=== PATIENT | female | born 1970 | race Hispanic/Latino ===

== ENCOUNTER 2021-12-07 16:53 | Outpatient (CLI) | payer OTHER | END 2021-12-07 16:54 | disposition home or self-care (01) | LOC: LABBT 16:53 | PROVIDERS: ATTEND Internal Medicine | DX: Z12.11 Encounter for screening for malignant neoplasm of colon (principal); Z20.822 Contact with and (suspected) exposure to COVID-19 | CPT/HCPCS: 87811 ==

== ENCOUNTER 2021-12-10 14:32 | Outpatient (CLI) | payer OTHER | END 2021-12-10 14:33 | disposition home or self-care (01) | LOC: BICMAMMO 14:32 | PROVIDERS: ATTEND Family Medicine | DX: Z12.31 Encounter for screening mammogram for malignant neoplasm of breast (principal) | CPT/HCPCS: 77063; 77067 ==

== ENCOUNTER 2021-12-12 07:07 | Day surgery (SDC) | payer OTHER ==
[2021-12-11 11:25] VITALS: BMI 45.3
[2021-12-12] MEDS ORDERED: Lidocaine 1% PF 5 ML VIAL ONE (09:11)
[2021-12-12] MEDS ORDERED: PROPOFOL 200 MG/20 ML VIAL ONE (09:11)
== END 2021-12-12 10:08 | disposition home or self-care (01) ==
LOC: SDC 07:07
PROVIDERS: ATTEND Internal Medicine
PROC: 0DBM8ZX Excision of Descending Colon, Via Natural or Artificial Opening Endoscopic, Diagnostic (ICD-10-PCS; principal; 2021-12-12)
PROC: 0DBH8ZX Excision of Cecum, Via Natural or Artificial Opening Endoscopic, Diagnostic (ICD-10-PCS; principal; 2021-12-12)
PROC: 0DBK8ZX Excision of Ascending Colon, Via Natural or Artificial Opening Endoscopic, Diagnostic (ICD-10-PCS; principal; 2021-12-12)
DX: Z12.11 Encounter for screening for malignant neoplasm of colon (principal); D12.0 Benign neoplasm of cecum; D12.2 Benign neoplasm of ascending colon; D12.4 Benign neoplasm of descending colon; K57.30 Diverticulosis of large intestine without perforation or abscess without bleeding; E03.9 Hypothyroidism, unspecified; I10 Essential (primary) hypertension; M32.9 Systemic lupus erythematosus, unspecified; Z79.890 Hormone replacement therapy; Z79.899 Other long term (current) drug therapy
CPT/HCPCS: 88305; J2704

== ENCOUNTER 2022-03-05 08:13 | Inpatient (IN) | payer OTHER ==
[2022-03-05] MEDS ORDERED: Fentanyl 100 MCG/2 ML VIAL ONE (08:39)
[2022-03-05 09:48] LABS: ALT (SGPT) 191 U/L (8-55); AST (SGOT) 285 U/L (5-34); Albumin 3.4 g/dL (3.5-5.0); Alkaline Phosphatase 74 U/L (40-110); Anion Gap 16 mmol/L (10-20); BUN (Urea Nitrogen) 22 mg/dL (7.0-18.7); Bilirubin, Total 0.3 mg/dL (0.2-1.2); Calc. Creatinine Clearance 0 mL/min (70-130); Carbon Dioxide 19 mmol/L (22-29); Chloride 103 mmol/L (98-107); Estimated GFR 64; Globulin 3.3 g/dL (2.4-3.5); Glucose 153 mg/dL (70-105); Protein, Total 6.7 g/dL (6.0-8.3); Sodium 133 mmol/L (136-145)
[2022-03-05 09:57] LABS: #Eosinphils 0.1 thou/uL (0.0-0.7); #Lymphocytes 0.7 thou/uL (1.20-3.40); #Monocytes 0.5 thou/uL (0.11-0.59); #Neutrophils 9.8 thou/uL (1.40-6.50); %Basophils 0.3 % (0.0-1.0); %Eosinophils 1.1 % (0.0-10.0); %Lymphocytes 6.2 % (21.0-51.0); %Monocytes 4.1 % (0.0-10.0); %Neutrophils 88.4 % (42.0-75.0); Hemoglobin 12.8 g/dL (12.0-16.0); Mean Corpuscular HGB CONC 33.9 g/dL (32.0-36.0); Mean Corpuscular Hemoglobin 29.6 pg (27.0-31.0); Mean Corpuscular Volume 87.3 fL (78.0-98.0); Mean Platelet Volume 7.3 fL (7.4-10.4); Platelet Count 237 thou/uL (130-400); RBC Distribution Width 12.5 % (11.5-14.5); Red Blood Cell (RBC) Count 4.35 mill/uL (4.20-5.40); White Blood Cell (WBC) Count 11.1 thou/uL (4.8-10.8)
[2022-03-05 10:03] LABS: Prothrombin Time 13.4 sec (12.0-14.7)
[2022-03-05 10:04] LABS: PTT 27.2 sec (22.9-36.1)
[2022-03-05] MEDS ORDERED: Dextrose 50% Abboject 50 ML SYRINGE SLOW IVP PRN (10:52)
[2022-03-05] MEDS ORDERED: Morphine 2 MG/ML VIAL SLOW IVP PRN (10:52)
[2022-03-05] MEDS ORDERED: HumaLOG 300 UNITS/3 ML VIAL SC PRN (10:52)
[2022-03-05] MEDS ORDERED: TETANUS, DIPHTHERIA TOX,ADULT (TDVAX) 0.5 ML VIAL IM ONE (10:52)
[2022-03-05] MEDS ORDERED: Dextrose 5% in Water 1,000 ML IV PRN (10:52)
[2022-03-05] MEDS ORDERED: Morphine 4 MG/ML VIAL ONE (11:54)
[2022-03-05 12:58] LABS: Lactic Acid 3.2 mmol/L (0.5-2.2)
[2022-03-05] MEDS: traMADol HCl 50 MG TAB PO PRN (13:21)
[2022-03-05] MEDS: Sodium Chloride 0.9% 1,000 ML IV SCH ×3 (13:22→23:10)
[2022-03-05] MEDS: Ondansetron PF 4 MG/2 ML Vial IVP PRN (13:26)
[2022-03-05] MEDS ORDERED: Iopamidol 370 76% 50 ML VIAL FS ONE (13:36)
[2022-03-05 14:37] VITALS: BMI 45.3
[2022-03-05] MEDS: Cyclobenzaprine 10 MG TAB PO PRN (15:56)
[2022-03-05] MEDS ORDERED: FLU VACC QS2022-23(6MOS UP)/PF 60 MCG/0.5 ML SYRINGE IM ONE (16:00)
[2022-03-05 16:09] LABS: Bacteria/HPF 4+ HPF (None Seen); Bilirubin Negative (Negative); Blood, Urine 3+ (Negative); Clarity Turbid (Clear); Glucose, Urine (Dipstick) Normal (Negative); Ketone, Urine Negative (Negative); Leukocyte 500 Leu/uL (Negative); Nitrite 1+ (Negative); Protein, Urine (Dipstick) 50 mg/dL (Neg-Trace); RBC/HPF Greater than 50 HPF (0-3); Specific Gravity, Urine 1.041 (1.002-1.036); Squamous Epithelial None Seen HPF (0-3); Urobilinogen Normal mg/dL (Less than 2); WBC/HPF Greater than 50 HPF (0-3)
[2022-03-05 16:10] LABS: Urine Culture Reflex Yes Yes
[2022-03-05] MEDS ORDERED: Boostrix 0.5 ML (Tdap) VIAL (>/=7 yrs of age) IM ONE (16:30)
[2022-03-05] MEDS: cefTRIAXone\\ROCEPHIN 2 GM in Sodium Chloride 0.9% 100 ML IVPB SCH (17:22)
[2022-03-05] MEDS: Acetaminophen 325 MG TAB PO SCH ×2 (17:23→23:18)
[2022-03-05] MEDS: traMADol HCl 50 MG TAB PO SCH ×2 (17:26→23:21)
[2022-03-05] MEDS: Hydroxychloroquine Sulfate 200 MG TAB PO SCH (21:20)
[2022-03-05] MEDS: Senokot S 8.6-50 MG TAB PO SCH (21:20)
[2022-03-06] MEDS: Sodium Chloride 0.9% 1,000 ML IV SCH ×2 (04:53→16:42)
[2022-03-06] MEDS: Acetaminophen 325 MG TAB PO SCH ×3 (05:22→17:47)
[2022-03-06] MEDS: Levothyroxine Sodium 75 MCG TAB PO SCH (05:23)
[2022-03-06] MEDS: traMADol HCl 50 MG TAB PO SCH ×3 (05:23→17:48)
[2022-03-06 05:53] LABS: #Eosinphils 0.1 thou/uL (0.0-0.7); #Lymphocytes 0.7 thou/uL (1.20-3.40); #Monocytes 0.6 thou/uL (0.11-0.59); #Neutrophils 4.4 thou/uL (1.40-6.50); %Basophils 0.3 % (0.0-1.0); %Eosinophils 1.2 % (0.0-10.0); %Lymphocytes 12.1 % (21.0-51.0); %Monocytes 10.3 % (0.0-10.0); %Neutrophils 76.1 % (42.0-75.0); Hemoglobin 11.7 g/dL (12.0-16.0); Mean Corpuscular HGB CONC 33.5 g/dL (32.0-36.0); Mean Corpuscular Hemoglobin 29.7 pg (27.0-31.0); Mean Corpuscular Volume 88.7 fL (78.0-98.0); Mean Platelet Volume 7.1 fL (7.4-10.4); Platelet Count 196 thou/uL (130-400); RBC Distribution Width 12.8 % (11.5-14.5); Red Blood Cell (RBC) Count 3.94 mill/uL (4.20-5.40); White Blood Cell (WBC) Count 5.8 thou/uL (4.8-10.8)
[2022-03-06 06:05] LABS: Anion Gap 12 mmol/L (10-20); BUN (Urea Nitrogen) 20 mg/dL (7.0-18.7); Calc. Creatinine Clearance 152 mL/min (70-130); Calcium 8.7 mg/dL (7.8-10.44); Carbon Dioxide 21 mmol/L (22-29); Chloride 107 mmol/L (98-107); Estimated GFR 88; Glucose 104 mg/dL (70-105); Potassium 4.5 mmol/L (3.5-5.1); Sodium 135 mmol/L (136-145)
[2022-03-06 06:30] LABS: INR-International Normal Ratio 1.1; Prothrombin Time 14.1 sec (12.0-14.7)
[2022-03-06 06:31] LABS: PTT 30.2 sec (22.9-36.1)
[2022-03-06] MEDS: Pregabalin 50 MG CAP PO SCH (08:45)
[2022-03-06] MEDS: Senokot S 8.6-50 MG TAB PO SCH ×2 (08:46→20:38)
[2022-03-06] MEDS: Folic Acid 1 MG TAB PO SCH (08:46)
[2022-03-06] MEDS: Magnesium Oxide 400 MG TAB PO SCH (08:46)
[2022-03-06] MEDS: Hydroxychloroquine Sulfate 200 MG TAB PO SCH ×2 (08:46→20:38)
[2022-03-06] MEDS ORDERED: Methotrexate Sodium 2.5 MG TAB PO SCH (09:00)
[2022-03-06] MEDS: traMADol HCl 50 MG TAB PO PRN ×2 (12:12→17:48)
[2022-03-06] MEDS: Enoxaparin Sodium 30 MG/0.3 ML SYRINGE SC SCH ×2 (12:14→20:38)
[2022-03-06] MEDS: Polyethylene Glycol 3350 17 GM Packet PO SCH (12:16)
[2022-03-06] MEDS: cefTRIAXone\\ROCEPHIN 2 GM in Sodium Chloride 0.9% 100 ML IVPB SCH (17:48)
[2022-03-07] MEDS: traMADol HCl 50 MG TAB PO SCH ×4 (00:17→18:13)
[2022-03-07] MEDS: Acetaminophen 325 MG TAB PO SCH (00:17)
[2022-03-07] MEDS: Ondansetron PF 4 MG/2 ML Vial IVP PRN ×2 (05:14→18:15)
[2022-03-07] MEDS: Levothyroxine Sodium 75 MCG TAB PO SCH (05:14)
[2022-03-07] MEDS: Acetaminophen 500 MG TAB PO SCH ×3 (05:14→18:13)
[2022-03-07] MEDS: Sodium Chloride 0.9% 1,000 ML IV SCH (06:49)
[2022-03-07 06:54] LABS: Anion Gap 14 mmol/L (10-20); BUN (Urea Nitrogen) 26 mg/dL (7.0-18.7); Calc. Creatinine Clearance 137 mL/min (70-130); Calcium 9.4 mg/dL (7.8-10.44); Carbon Dioxide 20 mmol/L (22-29); Chloride 106 mmol/L (98-107); Estimated GFR 78; Glucose 130 mg/dL (70-105); Phosphorus 3.6 mg/dL (2.3-4.7); Potassium 4.8 mmol/L (3.5-5.1); Sodium 135 mmol/L (136-145)
[2022-03-07 07:29] LABS: #Eosinphils 0.2 thou/uL (0.0-0.7); #Lymphocytes 0.7 thou/uL (1.20-3.40); #Monocytes 0.6 thou/uL (0.11-0.59); #Neutrophils 5.5 thou/uL (1.40-6.50); %Basophils 0.3 % (0.0-1.0); %Eosinophils 3.3 % (0.0-10.0); %Lymphocytes 9.7 % (21.0-51.0); %Monocytes 8.6 % (0.0-10.0); %Neutrophils 78.2 % (42.0-75.0); Hemoglobin 12.7 g/dL (12.0-16.0); Mean Corpuscular HGB CONC 33.4 g/dL (32.0-36.0); Mean Corpuscular Volume 89.9 fL (78.0-98.0); Mean Platelet Volume 7.2 fL (7.4-10.4); Platelet Count 187 thou/uL (130-400); RBC Distribution Width 12.6 % (11.5-14.5); Red Blood Cell (RBC) Count 4.24 mill/uL (4.20-5.40)
[2022-03-07 07:39] LABS: SARS-CoV-2 NAA Rapid Test Not Detected (NotDetected)
[2022-03-07] MEDS: Magnesium Oxide 400 MG TAB PO SCH (09:52)
[2022-03-07] MEDS: Senokot S 8.6-50 MG TAB PO SCH ×2 (09:52→21:13)
[2022-03-07] MEDS: Cholecalciferol 1,000 UNITS (25 MCG) TAB PO SCH (09:52)
[2022-03-07] MEDS: Pregabalin 50 MG CAP PO SCH (09:52)
[2022-03-07] MEDS: Hydroxychloroquine Sulfate 200 MG TAB PO SCH ×2 (09:52→21:13)
[2022-03-07] MEDS: Folic Acid 1 MG TAB PO SCH (09:52)
[2022-03-07] MEDS: Lisinopril 20 MG TAB PO SCH (09:53)
[2022-03-07] MEDS: Polyethylene Glycol 3350 17 GM Packet PO SCH (09:58)
[2022-03-07] MEDS: Enoxaparin Sodium 30 MG/0.3 ML SYRINGE SC SCH ×2 (09:58→21:13)
[2022-03-07] MEDS: traMADol HCl 50 MG TAB PO PRN ×2 (11:49→18:13)
[2022-03-07] MEDS: cefTRIAXone\\ROCEPHIN 2 GM in Sodium Chloride 0.9% 100 ML IVPB SCH (18:14)
[2022-03-08] MEDS: traMADol HCl 50 MG TAB PO SCH ×5 (00:17→23:49)
[2022-03-08] MEDS: Acetaminophen 500 MG TAB PO SCH ×5 (00:17→23:49)
[2022-03-08] MEDS: Levothyroxine Sodium 75 MCG TAB PO SCH (05:20)
[2022-03-08] MEDS: Enoxaparin Sodium 30 MG/0.3 ML SYRINGE SC SCH ×2 (08:13→20:26)
[2022-03-08] MEDS: Cholecalciferol 1,000 UNITS (25 MCG) TAB PO SCH (08:13)
[2022-03-08] MEDS: Polyethylene Glycol 3350 17 GM Packet PO SCH (08:13)
[2022-03-08] MEDS: Hydroxychloroquine Sulfate 200 MG TAB PO SCH ×2 (08:13→20:26)
[2022-03-08] MEDS: Pregabalin 50 MG CAP PO SCH (08:14)
[2022-03-08] MEDS: Folic Acid 1 MG TAB PO SCH (08:14)
[2022-03-08] MEDS: Magnesium Oxide 400 MG TAB PO SCH (08:14)
[2022-03-08] MEDS: Senokot S 8.6-50 MG TAB PO SCH ×2 (08:14→20:25)
[2022-03-08] MEDS: Lisinopril 20 MG TAB PO SCH (08:14)
[2022-03-08] MEDS: Ondansetron PF 4 MG/2 ML Vial IVP PRN (11:46)
[2022-03-08] MEDS: Cyclobenzaprine 10 MG TAB PO PRN (20:26)
[2022-03-09] MEDS: traMADol HCl 50 MG TAB PO SCH ×4 (05:30→23:49)
[2022-03-09] MEDS: Levothyroxine Sodium 75 MCG TAB PO SCH (05:30)
[2022-03-09] MEDS: Acetaminophen 500 MG TAB PO SCH ×4 (05:30→23:48)
[2022-03-09] MEDS: Lisinopril 20 MG TAB PO SCH (08:47)
[2022-03-09] MEDS: Magnesium Oxide 400 MG TAB PO SCH (08:47)
[2022-03-09] MEDS: Senokot S 8.6-50 MG TAB PO SCH ×2 (08:47→19:16)
[2022-03-09] MEDS: Cholecalciferol 1,000 UNITS (25 MCG) TAB PO SCH (08:47)
[2022-03-09] MEDS: Enoxaparin Sodium 30 MG/0.3 ML SYRINGE SC SCH ×2 (08:47→19:50)
[2022-03-09] MEDS: Hydroxychloroquine Sulfate 200 MG TAB PO SCH ×2 (08:47→19:50)
[2022-03-09] MEDS: Folic Acid 1 MG TAB PO SCH (08:48)
[2022-03-09] MEDS: Polyethylene Glycol 3350 17 GM Packet PO SCH (08:48)
[2022-03-09] MEDS: Pregabalin 50 MG CAP PO SCH (09:00)
[2022-03-09] MEDS: traMADol HCl 50 MG TAB PO PRN ×2 (12:32→18:28)
[2022-03-10] MEDS: Acetaminophen 500 MG TAB PO SCH ×4 (05:11→23:35)
[2022-03-10] MEDS: Levothyroxine Sodium 75 MCG TAB PO SCH (05:12)
[2022-03-10] MEDS: traMADol HCl 50 MG TAB PO SCH ×4 (05:12→23:35)
[2022-03-10] MEDS: Enoxaparin Sodium 30 MG/0.3 ML SYRINGE SC SCH ×2 (09:21→20:47)
[2022-03-10] MEDS: Lisinopril 20 MG TAB PO SCH (09:22)
[2022-03-10] MEDS: Magnesium Oxide 400 MG TAB PO SCH (09:22)
[2022-03-10] MEDS: Pregabalin 50 MG CAP PO SCH (09:22)
[2022-03-10] MEDS: Hydroxychloroquine Sulfate 200 MG TAB PO SCH ×2 (09:22→20:47)
[2022-03-10] MEDS: Cholecalciferol 1,000 UNITS (25 MCG) TAB PO SCH (09:22)
[2022-03-10] MEDS: Folic Acid 1 MG TAB PO SCH (09:22)
[2022-03-10] MEDS: Senokot S 8.6-50 MG TAB PO SCH ×2 (09:23→20:49)
[2022-03-10] MEDS: Polyethylene Glycol 3350 17 GM Packet PO SCH (09:23)
[2022-03-11] MEDS: Levothyroxine Sodium 75 MCG TAB PO SCH (05:28)
[2022-03-11] MEDS: Acetaminophen 500 MG TAB PO SCH ×3 (05:28→18:20)
[2022-03-11] MEDS: traMADol HCl 50 MG TAB PO SCH ×3 (05:29→18:21)
[2022-03-11] MEDS: Lisinopril 20 MG TAB PO SCH (09:16)
[2022-03-11] MEDS: Senokot S 8.6-50 MG TAB PO SCH (09:17)
[2022-03-11] MEDS: Folic Acid 1 MG TAB PO SCH (09:17)
[2022-03-11] MEDS: Magnesium Oxide 400 MG TAB PO SCH (09:17)
[2022-03-11] MEDS: Cholecalciferol 1,000 UNITS (25 MCG) TAB PO SCH (09:17)
[2022-03-11] MEDS: Pregabalin 50 MG CAP PO SCH (09:17)
[2022-03-11 09:18] VITALS: BP 145/99
[2022-03-11] MEDS: Hydroxychloroquine Sulfate 200 MG TAB PO SCH (09:18)
[2022-03-11] MEDS: Polyethylene Glycol 3350 17 GM Packet PO SCH (09:18)
[2022-03-11] MEDS: Enoxaparin Sodium 30 MG/0.3 ML SYRINGE SC SCH (09:18)
[2022-03-11 09:51] VITALS: TEMP 98.3
== END 2022-03-11 19:11 | DRG 964 ==
LOC: ERS 08:13 → SURG A 13:02
PROVIDERS: ADMIT Surgery; ATTEND Surgery
DX: S36.892A Contusion of other intra-abdominal organs, initial encounter (principal); S32.19XA Other fracture of sacrum, initial encounter for closed fracture; N39.0 Urinary tract infection, site not specified; S32.302A Unspecified fracture of left ilium, initial encounter for closed fracture; S32.592A Other specified fracture of left pubis, initial encounter for closed fracture; I10 Essential (primary) hypertension; E03.9 Hypothyroidism, unspecified; M32.9 Systemic lupus erythematosus, unspecified; M06.9 Rheumatoid arthritis, unspecified; N20.0 Calculus of kidney; E11.9 Type 2 diabetes mellitus without complications; G89.11 Acute pain due to trauma; E78.5 Hyperlipidemia, unspecified; Z20.822 Contact with and (suspected) exposure to COVID-19; Z79.890 Hormone replacement therapy; Z79.899 Other long term (current) drug therapy; V49.40XA Driver injured in collision with unspecified motor vehicles in traffic accident, initial encounter; Z98.890 Other specified postprocedural states
CPT/HCPCS: 36415; 36416; 70450; 71045; 71260; 72125; 72170; 74177; 80048; 80053; 81001; 83605; 83735; 84100; 85025; 85520; 85610; 85730; 86850; 86900; 86901; 87077; 87086; 87186; 90715; 93005; 96374; 96375; G0390; J0696; J1650; J2270; J2405; J3010; J3490; J7050; J8610; Q9967; U0002

== ENCOUNTER 2023-06-02 15:12 | Inpatient (IN) | payer BC ==
[2023-06-02] MEDS ORDERED: Iopamidol-370 76% 500 ML MDV (1 ML CHARGE) ONE (16:16)
[2023-06-02 17:25] LABS: Hemoglobin 12.9 g/dL (12.0-16.0); Manual Diff?? YES; Mean Corpuscular HGB CONC 33.1 g/dL (32.0-36.0); Mean Corpuscular Hemoglobin 29.3 pg (27.0-31.0); Mean Corpuscular Volume 88.4 fl (78.0-98.0); Mean Platelet Volume 9.5 fL (7.4-10.4); Platelet Count 287 10x3/uL (130-400); RBC Distribution Width 14.1 % (11.5-14.5); Red Blood Cell (RBC) Count 4.41 mill/uL (4.20-5.40); White Blood Cell (WBC) Count 17.6 10x3/uL (4.8-10.8)
[2023-06-02 17:34] LABS: Delete Auto Diff?? YES
[2023-06-02 17:40] LABS: INR-International Normal Ratio 1.1; Prothrombin Time 14.6 sec (12.0-14.7)
[2023-06-02 17:41] LABS: PTT 29.2 sec (22.9-36.1)
[2023-06-02 17:48] LABS: ALT (SGPT) 18 U/L (8-55); AST (SGOT) 16 U/L (5-34); Albumin 3.9 g/dL (3.5-5.0); Alkaline Phosphatase 78 U/L (40-110); Anion Gap 14 mmol/L (10-20); BUN (Urea Nitrogen) 21 mg/dL (9.8-20.1); Bilirubin, Total 0.8 mg/dL (0.2-1.2); Calc. Creatinine Clearance 0 mL/min (70-130); Calcium 9.5 mg/dL (7.8-10.44); Carbon Dioxide 24 mmol/L (22-29); Chloride 98 mmol/L (98-107); Estimated GFR 44; Globulin 4.2 g/dL (2.4-3.5); Glucose 145 mg/dL (70-105); Potassium 4.5 mmol/L (3.5-5.1); Protein, Total 8.1 g/dL (6.0-8.3); Sodium 131 mmol/L (136-145)
[2023-06-02 18:08] LABS: Band 25 % (5-11); CellaVision Operator ID LAB.MJL; Lymphocytes 3 % (21-51); Monocytes 8 % (0-10); Neutrophil 62 % (42-75); Platelet Adequacy Comment Platelets Normal; RBC Morphology Within Normal Limits; Reactive Lymphocytes 2 % (0-10); Total Cell Count 100
[2023-06-02] MEDS ORDERED: cefTRIAXone (ROCEPHIN) 2 GM VIAL ONE (18:32)
[2023-06-02] MEDS ORDERED: Sodium Chloride 0.9% 100 ML ONE (18:32)
[2023-06-02] MEDS ORDERED: Dextrose 50% Abboject 50 ML SYRINGE SLOW IVP PRN (18:51)
[2023-06-02] MEDS ORDERED: Glucagon 1 MG/ML KIT IM PRN (18:51)
[2023-06-02] MEDS ORDERED: Ondansetron PF 4 MG/2 ML Vial IVP PRN (18:51)
[2023-06-02] MEDS ORDERED: Acetaminophen 325 MG TAB PO PRN (18:51)
[2023-06-02] MEDS ORDERED: Dextrose 5% in Water 1,000 ML IV PRN (18:51)
[2023-06-02] MEDS ORDERED: HumaLOG 300 UNITS/3 ML VIAL SC PRN (18:51)
[2023-06-02] MEDS ORDERED: Azithromycin 500 MG VIAL ONE (20:45)
[2023-06-02] MEDS ORDERED: Vancomycin HCl 750 MG in Sodium Chloride 0.9% 250 ML 250 ML IVPB SCH (21:00)
[2023-06-03 01:12] VITALS: BMI 47.0
[2023-06-03] MEDS ORDERED: Vancomycin (BATCH) 2 GM in Premix 1 BAG IVPB SCH (02:00)
[2023-06-03] MEDS ORDERED: Sodium Chloride 0.9% 100 ML ONE (02:00)
[2023-06-03] MEDS ORDERED: Cefepime 1 GM VIAL ONE (02:00)
[2023-06-03] MEDS ORDERED: Cefepime 1 GM in Sodium Chloride 0.9% 100 ML IVPB SCH (03:00)
[2023-06-03] MEDS: Heparin 5,000 UNITS/ML VIAL SC SCH ×4 (03:24→20:26)
[2023-06-03] MEDS: guaiFENesin ER 600 MG TAB PO SCH ×3 (03:24→20:26)
[2023-06-03] MEDS ORDERED: Ipratropium/Albuterol 3 ML NEB NEB PRN (04:21)
[2023-06-03 05:49] LABS: Hematocrit 34.2 % (36.0-47.0); Hemoglobin 11.3 g/dL (12.0-16.0); Manual Diff?? YES; Mean Corpuscular Volume 87.9 fl (78.0-98.0); Mean Platelet Volume 9.7 fL (7.4-10.4); Platelet Count 238 10x3/uL (130-400); RBC Distribution Width 14.1 % (11.5-14.5); Red Blood Cell (RBC) Count 3.89 mill/uL (4.20-5.40); White Blood Cell (WBC) Count 15.1 10x3/uL (4.8-10.8)
[2023-06-03 05:53] LABS: Delete Auto Diff?? YES
[2023-06-03 06:11] LABS: Anion Gap 12 mmol/L (10-20); BUN (Urea Nitrogen) 21 mg/dL (9.8-20.1); Calc. Creatinine Clearance 128 mL/min (70-130); Calcium 9.1 mg/dL (7.8-10.44); Carbon Dioxide 24 mmol/L (22-29); Chloride 102 mmol/L (98-107); Estimated GFR 63; Glucose 143 mg/dL (70-105); Potassium 3.9 mmol/L (3.5-5.1); Sodium 134 mmol/L (136-145)
[2023-06-03 06:15] LABS: Band 17 % (5-11); CellaVision Operator ID LAB.CLH1; Hypochromia SLIGHT = 6-15 cells HPF (0-5); Lymphocytes 6 % (21-51); Monocytes 5 % (0-10); Neutrophil 72 % (42-75); Platelet Adequacy Comment Platelets Normal; Polychromasia SLIGHT = 2-3 cells HPF (0-2); Total Cell Count 99
[2023-06-03 07:29] LABS: SARS-CoV-2 NAA Rapid Test Not Detected (NotDetected)
[2023-06-03] MEDS ORDERED: Heparin 5,000 UNITS/ML VIAL ONE (08:45)
[2023-06-03] MEDS ORDERED: guaiFENesin ER 600 MG TAB ONE (08:45)
[2023-06-03 09:36] LABS: Bacteria/HPF None Seen HPF (None Seen); Bilirubin Negative (Negative); Blood, Urine Negative (Negative); CAUTI Indications for Culture Dysuria,urgency,freq; Clarity Clear (Clear); Glucose, Urine (Dipstick) Normal (Negative); Ketone, Urine Negative (Negative); Leukocyte Negative Leu/uL (Negative); Nitrite Negative (Negative); Protein, Urine (Dipstick) 30 mg/dL (Neg-Trace); RBC/HPF 0-3 HPF (0-3); Specific Gravity, Urine 1.039 (1.002-1.036); Squamous Epithelial 0-3 HPF (0-3); Urobilinogen Normal mg/dL (Less than 2); WBC/HPF 0-3 HPF (0-3); pH, Urine 5.5 (5.0-9.0)
[2023-06-03 09:38] LABS: Urine Culture Reflex No No
[2023-06-03] MEDS: Cefepime 2 GM in Sodium Chloride 0.9% 100 ML IVPB SCH (16:56)
[2023-06-03] MEDS: Sodium Chloride 0.9% 1,000 ML IV SCH ×2 (17:50→20:25)
[2023-06-03] MEDS: Vancomycin 1 GM in Premix 1 BAG IVPB SCH (17:50)
[2023-06-03] MEDS: Ciprofloxacin 0.2% Otic (0.25ML CONTAINER) R EAR SCH (20:26)
[2023-06-03 20:57] LABS: Legionella Urinary Ag Negative (Negative); Strep pneumo Urine Ag NEGATIVE (NEGATIVE)
[2023-06-04] MEDS: Cefepime 2 GM in Sodium Chloride 0.9% 100 ML IVPB SCH ×2 (02:23→14:13)
[2023-06-04] MEDS: Vancomycin 1 GM in Premix 1 BAG IVPB SCH ×2 (02:23→15:58)
[2023-06-04 04:38] LABS: #Eosinphils 0.3 thou/uL (0.0-0.7); #Monocytes 0.6 thou/uL (0.11-0.59); #Neutrophils 6.8 thou/uL (1.40-6.50); %Basophils 0.1 % (0.0-1.0); %Eosinophils 3.7 % (0.0-10.0); %Lymphocytes 8.9 % (21.0-51.0); %Monocytes 6.5 % (0.0-10.0); %Neutrophils 79.9 % (42.0-75.0); Hematocrit 33.2 % (36.0-47.0); Mean Corpuscular HGB CONC 33.1 g/dL (32.0-36.0); Mean Corpuscular Hemoglobin 29.3 pg (27.0-31.0); Mean Corpuscular Volume 88.3 fl (78.0-98.0); Mean Platelet Volume 9.7 fL (7.4-10.4); Platelet Count 257 10x3/uL (130-400); RBC Distribution Width 13.7 % (11.5-14.5); Red Blood Cell (RBC) Count 3.76 mill/uL (4.20-5.40); White Blood Cell (WBC) Count 8.5 10x3/uL (4.8-10.8)
[2023-06-04 05:01] LABS: Anion Gap 12 mmol/L (10-20); BUN (Urea Nitrogen) 19 mg/dL (9.8-20.1); Calc. Creatinine Clearance 174 mL/min (70-130); Calcium 8.8 mg/dL (7.8-10.44); Carbon Dioxide 22 mmol/L (22-29); Chloride 105 mmol/L (98-107); Estimated GFR 90; Glucose 147 mg/dL (70-105); Potassium 3.9 mmol/L (3.5-5.1); Sodium 135 mmol/L (136-145)
[2023-06-04] MEDS: guaiFENesin ER 600 MG TAB PO SCH ×2 (08:21→19:57)
[2023-06-04] MEDS: Heparin 5,000 UNITS/ML VIAL SC SCH ×3 (08:21→19:57)
[2023-06-04] MEDS: Ciprofloxacin 0.2% Otic (0.25ML CONTAINER) R EAR SCH ×2 (08:43→19:57)
[2023-06-04] MEDS ORDERED: Vancomycin 1 GM in Premix 1 BAG IVPB SCH (14:00)
[2023-06-04 14:53] LABS: Vancomycin, Trough 11.1 ug/mL
[2023-06-05] MEDS: Vancomycin 1 GM in Premix 1 BAG IVPB SCH ×2 (00:01→08:53)
[2023-06-05] MEDS: Cefepime 2 GM in Sodium Chloride 0.9% 100 ML IVPB SCH (02:10)
[2023-06-05 07:08] LABS: #Eosinphils 0.3 thou/uL (0.0-0.7); #Monocytes 0.6 thou/uL (0.11-0.59); #Neutrophils 3.8 thou/uL (1.40-6.50); %Basophils 0.4 % (0.0-1.0); %Eosinophils 4.9 % (0.0-10.0); %Lymphocytes 12.3 % (21.0-51.0); %Monocytes 10.9 % (0.0-10.0); %Neutrophils 69.5 % (42.0-75.0); Hematocrit 35.5 % (36.0-47.0); Hemoglobin 11.8 g/dL (12.0-16.0); Mean Corpuscular HGB CONC 33.2 g/dL (32.0-36.0); Mean Corpuscular Hemoglobin 28.9 pg (27.0-31.0); Mean Corpuscular Volume 86.8 fl (78.0-98.0); Mean Platelet Volume 9.1 fL (7.4-10.4); Platelet Count 304 10x3/uL (130-400); RBC Distribution Width 13.7 % (11.5-14.5); Red Blood Cell (RBC) Count 4.09 mill/uL (4.20-5.40); White Blood Cell (WBC) Count 5.5 10x3/uL (4.8-10.8)
[2023-06-05 07:24] LABS: Anion Gap 14 mmol/L (10-20); BUN (Urea Nitrogen) 13 mg/dL (9.8-20.1); Calc. Creatinine Clearance 167 mL/min (70-130); Calcium 9.3 mg/dL (7.8-10.44); Carbon Dioxide 21 mmol/L (22-29); Chloride 104 mmol/L (98-107); Estimated GFR 86; Glucose 124 mg/dL (70-105); Potassium 3.8 mmol/L (3.5-5.1); Sodium 135 mmol/L (136-145)
[2023-06-05 08:27] VITALS: BP 144/82; TEMP 98.1
[2023-06-05] MEDS: Heparin 5,000 UNITS/ML VIAL SC SCH (08:53)
[2023-06-05] MEDS: Ciprofloxacin 0.2% Otic (0.25ML CONTAINER) R EAR SCH (08:53)
[2023-06-05] MEDS: guaiFENesin ER 600 MG TAB PO SCH (08:53)
== END 2023-06-05 10:11 | disposition home or self-care (01) | DRG 871 ==
LOC: ERS 15:12 → T4-A 18:42 → ERHOLD 18:46 → T4-A 06-03 12:47
PROVIDERS: ADMIT Internal Medicine; ATTEND Hospitalist
DX: A41.89 Other specified sepsis (principal); J10.00 Influenza due to other identified influenza virus with unspecified type of pneumonia; N17.9 Acute kidney failure, unspecified; Z68.42 Body mass index [BMI] 45.0-49.9, adult; E11.9 Type 2 diabetes mellitus without complications; E66.9 Obesity, unspecified; E03.9 Hypothyroidism, unspecified; M32.9 Systemic lupus erythematosus, unspecified; H66.91 Otitis media, unspecified, right ear; Z11.52 Encounter for screening for COVID-19; Z98.890 Other specified postprocedural states; Z79.899 Other long term (current) drug therapy; Z79.890 Hormone replacement therapy
CPT/HCPCS: 36415; 36416; 71045; 71275; 80048; 80053; 80202; 81001; 83605; 85025; 85610; 85730; 87040; 87081; 87086; 87449; 87899; 93005; 94760; J0456; J0692; J0696; J1644; J3370; J3370-JW; J3490; J7050; Q9967

== ENCOUNTER 2024-03-19 07:27 | Outpatient (CLI) | payer OTHER | END 2024-03-19 07:28 | disposition home or self-care (01) | LOC: BICULT 07:27 | PROVIDERS: ATTEND Internal Medicine Rheumatology | DX: R79.89 Other specified abnormal findings of blood chemistry (principal); K80.20 Calculus of gallbladder without cholecystitis without obstruction; K76.0 Fatty (change of) liver, not elsewhere classified; R16.0 Hepatomegaly, not elsewhere classified | CPT/HCPCS: 76705 ==